=== PATIENT | male | born 1970 | race Caucasian/White ===

== ENCOUNTER 2019-07-25 16:59 | Inpatient (IN) | payer OTHER ==
[~2019-07-25] VITALS: Ht 165.1 cm; Wt 59.8 kg
[2019-07-25] MEDS ORDERED: ISON100L PO (17:44)
[2019-07-25] MEDS ORDERED: PYRI50CA PO (17:44)
[2019-07-25] MEDS ORDERED: RIFA300 PO (17:44)
[2019-07-25] MEDS ORDERED: LISI-658 PO (17:44)
[2019-07-25] MEDS ORDERED: 0.9% SODIUM CHLORIDE 10 ML SYRINGE IVP PRN ×2 (18:30→20:30)
[2019-07-25] MEDS ORDERED: ACETAMINOPHEN 325 MG TABLET PO PRN (18:30)
[2019-07-25] MEDS ORDERED: ONDANSETRON HCL 4 MG/2 ML VIAL IVP PRN ×2 (18:30→20:30)
[2019-07-25 18:44] LABS: BASOPHILS % (AUTO) 0.4 % (0.0-2.0); EOSINOPHILS % (AUTO) 1.3 % (1.0-6.0); HEMATOCRIT 41.5 % (41-53); HEMOGLOBIN 13.8 g/dL (13.5-17.5); LYMPHOCYTES # (AUTO) 1.4 K/uL (1.0-4.8); LYMPHOCYTES % (AUTO) 19.2 % (22.0-44.0); MEAN CORPUSCULAR HEMOGLOBIN 30.6 pg (26.0-34.0); MEAN CORPUSCULAR HGB CONC 33.2 G/dL (31.0-37.0); MEAN CORPUSCULAR VOLUME 92 fL (80-100); MONOCYTES # (AUTO) 0.6 K/uL (0.1-1.0); MONOCYTES % (AUTO) 7.9 % (2.0-9.0); NEUTROPHILS # (AUTO) 5.3 K/uL (1.8-7.7); NEUTROPHILS % (AUTO) 71.2 % (40.0-70.0); PLATELET COUNT (AUTO) 297 K/uL (150-450); RED CELL DISTRIBUTION WIDTH 15.8 % (11.5-14.5)
[2019-07-25 18:59] LABS: ANION GAP 10 mmol/L (8-16); CALCIUM, TOTAL 9.1 mg/dL (8.8-10.5); CARBON DIOXIDE 26 mmol/L (22-29); CHLORIDE 103 mmol/L (98-107); CREATININE 0.89 mg/dL (0.60-1.30); GLOMERULAR FILTR. RATE CALC > 60 mL/min (>60); GLUCOSE,RANDOM 98 mg/dL (70-110); POTASSIUM 4.4 mmol/L (3.5-5.1); SODIUM SERUM 139 mmol/L (136-145); UREA NITROGEN, BLOOD 18 mg/dL (7-18)
[2019-07-25 19:05] LABS: ALANINE AMINOTRANSFERASE 34 U/L (12-78); ALBUMIN 4.3 g/dL (3.4-5.0); ALKALINE PHOSPHATASE 78 U/L (46-116); ASPARTATE AMINOTRANSFERASE 29 U/L (15-37); BILIRUBIN,TOTAL 0.3 mg/dL (0.1-1.0); TOTAL PROTEIN, SERUM 7.6 g/dL (6.4-8.2)
[2019-07-25] MEDS ORDERED: POTASSIUM CHL 10 MEQ/WATER 50 ML IV PRN (20:30)
[2019-07-25] MEDS ORDERED: MAGNESIUM OXIDE 400 MG TABLET PO PRN (20:30)
[2019-07-25] MEDS ORDERED: POTASSIUM CHLORIDE 20 MEQ ER TABLET PO PRN (20:30)
[2019-07-25] MEDS ORDERED: MAGNESIUM SULFATE 4 GM/WATER 100 ML IV PRN (20:30)
[2019-07-25] MEDS ORDERED: MAGNESIUM SULFATE 2 GM/WATER 50 ML IV PRN (20:30)
[2019-07-25 22:05] VITALS: BP 116/71
[2019-07-25] MEDS: PANTOPRAZOLE SODIUM 40 MG DR TABLET PO SCH (22:12)
[2019-07-25] MEDS: HEPARIN SODIUM,PORCINE 5,000 UNITS/ML VIAL SQ SCH (22:20)
[2019-07-25] MEDS: ZOLPIDEM TARTRATE 5 MG TABLET PO PRN (23:53)
[2019-07-25] MEDS: ACETAMINOPHEN 325 MG TABLET PO PRN (23:53)
[2019-07-26 04:54] VITALS: BP 104/68
[2019-07-26 07:40] LABS: AMPHET/METH SCREEN,URINE NEGATIVE (NEGATIVE); BARBITURATE SCREEN, URINE NEGATIVE (NEGATIVE); BENZODIAZEPINES SCREEN,URINE NEGATIVE (NEGATIVE); CANNABINOID SCREEN,URINE NEGATIVE (NEGATIVE); COCAINE SCREEN,URINE NEGATIVE (NEGATIVE); METHADONE SCREEN, URINE NEGATIVE (NEGATIVE); OPIATE SCREEN,URINE NEGATIVE (NEGATIVE)
[2019-07-26 07:44] LABS: PHENCYCLIDINE SCREEN,URINE NEGATIVE (NEGATIVE)
[2019-07-26 08:01] LABS: BASOPHILS % (AUTO) 0.6 % (0.0-2.0); EOSINOPHILS % (AUTO) 2.2 % (1.0-6.0); HEMATOCRIT 40.3 % (41-53); HEMOGLOBIN 13.3 g/dL (13.5-17.5); LYMPHOCYTES # (AUTO) 1.4 K/uL (1.0-4.8); LYMPHOCYTES % (AUTO) 22.2 % (22.0-44.0); MEAN CORPUSCULAR HEMOGLOBIN 30.3 pg (26.0-34.0); MEAN CORPUSCULAR HGB CONC 33.1 G/dL (31.0-37.0); MEAN CORPUSCULAR VOLUME 92 fL (80-100); MONOCYTES # (AUTO) 0.4 K/uL (0.1-1.0); MONOCYTES % (AUTO) 6.8 % (2.0-9.0); NEUTROPHILS # (AUTO) 4.2 K/uL (1.8-7.7); NEUTROPHILS % (AUTO) 68.2 % (40.0-70.0); PLATELET COUNT (AUTO) 291 K/uL (150-450); RED CELL DISTRIBUTION WIDTH 15.3 % (11.5-14.5)
[2019-07-26 08:22] LABS: ANION GAP 3 mmol/L (8-16); CALCIUM, TOTAL 8.6 mg/dL (8.8-10.5); CARBON DIOXIDE 31 mmol/L (22-29); CHLORIDE 107 mmol/L (98-107); CREATININE 0.62 mg/dL (0.60-1.30); GLOMERULAR FILTR. RATE CALC > 60 mL/min (>60); GLUCOSE,RANDOM 93 mg/dL (70-110); POTASSIUM 4.3 mmol/L (3.5-5.1); SODIUM SERUM 141 mmol/L (136-145); UREA NITROGEN, BLOOD 17 mg/dL (7-18)
[2019-07-26 08:38] VITALS: BP 97/59
[2019-07-26] MEDS ORDERED: LISINOPRIL 20 MG TABLET PO SCH (09:00)
[2019-07-26] MEDS: ISONIAZID 300 MG TABLET PO SCH (09:32)
[2019-07-26] MEDS: HEPARIN SODIUM,PORCINE 5,000 UNITS/ML VIAL SQ SCH ×3 (09:32→23:24)
[2019-07-26] MEDS: PANTOPRAZOLE SODIUM 40 MG DR TABLET PO SCH (09:33)
[2019-07-26] MEDS: RIFAMPIN 300 MG CAPSULE PO SCH (09:33)
[2019-07-26] MEDS: HYDROCHLOROTHIAZIDE 25 MG TABLET PO SCH (09:33)
[2019-07-26] MEDS: PYRIDOXINE HCL 50 MG TABLET PO SCH (09:33)
[2019-07-26] MEDS: LISINOPRIL 20 MG TABLET PO SCH (11:51)
[2019-07-26] MEDS: ACETAMINOPHEN 325 MG TABLET PO PRN ×2 (11:52→16:03)
[2019-07-26 15:27] VITALS: BP 99/57
[2019-07-26] MEDS: ZOLPIDEM TARTRATE 5 MG TABLET PO PRN (23:24)
[2019-07-27 00:07] VITALS: BP 130/80
[2019-07-27 04:00] VITALS: BP 99/64
[2019-07-27] MEDS: HEPARIN SODIUM,PORCINE 5,000 UNITS/ML VIAL SQ SCH ×2 (08:00→16:00)
[2019-07-27] MEDS: HYDROCHLOROTHIAZIDE 25 MG TABLET PO SCH (08:22)
[2019-07-27] MEDS: PYRIDOXINE HCL 50 MG TABLET PO SCH (08:22)
[2019-07-27] MEDS: PANTOPRAZOLE SODIUM 40 MG DR TABLET PO SCH (08:22)
[2019-07-27] MEDS: RIFAMPIN 300 MG CAPSULE PO SCH (08:22)
[2019-07-27] MEDS: ISONIAZID 300 MG TABLET PO SCH (08:22)
[2019-07-27] MEDS: LISINOPRIL 20 MG TABLET PO SCH (08:22)
[2019-07-27 08:23] VITALS: BP 115/75
[2019-07-27] MEDS ORDERED: ISOMETHEPTENE PO PRN (15:15)
[2019-07-27] MEDS ORDERED: ACETAMINOPHEN PO PRN (15:15)
[2019-07-27] MEDS ORDERED: [UNRECOGNIZED DRUG - OTHER] PO PRN (15:15)
[2019-07-27 15:50] VITALS: BP 142/73
[2019-07-27 19:50] VITALS: BP 126/67
[2019-07-28] VITALS: BP 117/73
[2019-07-28] MEDS: HEPARIN SODIUM,PORCINE 5,000 UNITS/ML VIAL SQ SCH ×3 (08:00→16:00)
[2019-07-28 08:18] VITALS: BP 121/67
[2019-07-28] MEDS: PANTOPRAZOLE SODIUM 40 MG DR TABLET PO SCH (08:30)
[2019-07-28] MEDS: PYRIDOXINE HCL 50 MG TABLET PO SCH (08:30)
[2019-07-28] MEDS: LISINOPRIL 20 MG TABLET PO SCH (08:30)
[2019-07-28] MEDS: ISONIAZID 300 MG TABLET PO SCH (08:30)
[2019-07-28] MEDS: RIFAMPIN 300 MG CAPSULE PO SCH (08:30)
[2019-07-28] MEDS: HYDROCHLOROTHIAZIDE 25 MG TABLET PO SCH (08:30)
[2019-07-28 15:40] VITALS: BP 121/67
[2019-07-28 20:58] VITALS: BP 133/88
[2019-07-28] MEDS: ZOLPIDEM TARTRATE 5 MG TABLET PO PRN (20:58)
[2019-07-29] VITALS: BP 128/70
[2019-07-29] MEDS: HEPARIN SODIUM,PORCINE 5,000 UNITS/ML VIAL SQ SCH ×4 (08:10→23:56)
[2019-07-29] MEDS: PANTOPRAZOLE SODIUM 40 MG DR TABLET PO SCH (08:10)
[2019-07-29] MEDS: RIFAMPIN 300 MG CAPSULE PO SCH (08:11)
[2019-07-29] MEDS: LISINOPRIL 20 MG TABLET PO SCH (08:11)
[2019-07-29] MEDS: ISONIAZID 300 MG TABLET PO SCH (08:11)
[2019-07-29] MEDS: HYDROCHLOROTHIAZIDE 25 MG TABLET PO SCH (08:11)
[2019-07-29] MEDS: PYRIDOXINE HCL 50 MG TABLET PO SCH (08:13)
[2019-07-29 08:17] LABS: BASOPHILS % (AUTO) 0.7 % (0.0-2.0); EOSINOPHILS % (AUTO) 1.8 % (1.0-6.0); HEMATOCRIT 40.7 % (41-53); HEMOGLOBIN 13.9 g/dL (13.5-17.5); LYMPHOCYTES # (AUTO) 1.6 K/uL (1.0-4.8); LYMPHOCYTES % (AUTO) 25.5 % (22.0-44.0); MEAN CORPUSCULAR HGB CONC 34.1 G/dL (31.0-37.0); MEAN CORPUSCULAR VOLUME 91 fL (80-100); MONOCYTES # (AUTO) 0.5 K/uL (0.1-1.0); MONOCYTES % (AUTO) 7.5 % (2.0-9.0); NEUTROPHILS % (AUTO) 64.5 % (40.0-70.0); PLATELET COUNT (AUTO) 287 K/uL (150-450); RED BLOOD CELL COUNT(AUTO) 4.48 MIL/uL (4.50-5.90); RED CELL DISTRIBUTION WIDTH 15.4 % (11.5-14.5)
[2019-07-29] MEDS ORDERED: ISON300 PO (15:05)
[2019-07-29] MEDS: ASPIRIN/ACETAMINOPHEN/CAFFEINE 250-250-65 MG TABLET PO PRN (15:33)
[2019-07-29 16:06] VITALS: BP 137/81
[2019-07-29 20:31] VITALS: BP 104/56
[2019-07-29] MEDS: ZOLPIDEM TARTRATE 5 MG TABLET PO PRN (20:58)
[2019-07-30 04:00] VITALS: BP 102/75
[2019-07-30 06:58] LABS: BASOPHILS % (AUTO) 0.6 % (0.0-2.0); EOSINOPHILS % (AUTO) 2.5 % (1.0-6.0); HEMATOCRIT 39.7 % (41-53); HEMOGLOBIN 13.5 g/dL (13.5-17.5); LYMPHOCYTES # (AUTO) 1.4 K/uL (1.0-4.8); LYMPHOCYTES % (AUTO) 27.1 % (22.0-44.0); MEAN CORPUSCULAR HEMOGLOBIN 30.8 pg (26.0-34.0); MEAN CORPUSCULAR VOLUME 91 fL (80-100); MONOCYTES # (AUTO) 0.5 K/uL (0.1-1.0); MONOCYTES % (AUTO) 8.8 % (2.0-9.0); NEUTROPHILS # (AUTO) 3.1 K/uL (1.8-7.7); PLATELET COUNT (AUTO) 284 K/uL (150-450); RED BLOOD CELL COUNT(AUTO) 4.37 MIL/uL (4.50-5.90); RED CELL DISTRIBUTION WIDTH 15.3 % (11.5-14.5)
[2019-07-30 07:42] VITALS: BP 107/74
[2019-07-30] MEDS: HEPARIN SODIUM,PORCINE 5,000 UNITS/ML VIAL SQ SCH ×4 (08:00→23:44)
[2019-07-30] MEDS: ISONIAZID 300 MG TABLET PO SCH (08:28)
[2019-07-30] MEDS: PYRIDOXINE HCL 50 MG TABLET PO SCH (08:28)
[2019-07-30] MEDS: PANTOPRAZOLE SODIUM 40 MG DR TABLET PO SCH (08:28)
[2019-07-30] MEDS: RIFAMPIN 300 MG CAPSULE PO SCH (08:28)
[2019-07-30] MEDS: LISINOPRIL 20 MG TABLET PO SCH (08:29)
[2019-07-30] MEDS: HYDROCHLOROTHIAZIDE 25 MG TABLET PO SCH (08:29)
[2019-07-30] MEDS: ASPIRIN/ACETAMINOPHEN/CAFFEINE 250-250-65 MG TABLET PO PRN ×2 (09:04→16:23)
[2019-07-30 15:33] VITALS: BP 127/58
[2019-07-30] MEDS: RisperiDONE 1 MG TABLET PO SCH (20:48)
[2019-07-30] MEDS: ZOLPIDEM TARTRATE 5 MG TABLET PO PRN (20:49)
[2019-07-30] MEDS: ACETAMINOPHEN 325 MG TABLET PO PRN (20:49)
[2019-07-30 21:27] VITALS: BP 135/82
[2019-07-31] MEDS: ASPIRIN/ACETAMINOPHEN/CAFFEINE 250-250-65 MG TABLET PO PRN ×3 (05:24→20:46)
[2019-07-31 06:22] VITALS: BP 99/57
[2019-07-31] MEDS: HEPARIN SODIUM,PORCINE 5,000 UNITS/ML VIAL SQ SCH ×3 (08:00→23:46)
[2019-07-31 08:27] VITALS: BP 153/68
[2019-07-31] MEDS: PYRIDOXINE HCL 50 MG TABLET PO SCH (08:29)
[2019-07-31] MEDS: ISONIAZID 300 MG TABLET PO SCH (08:29)
[2019-07-31] MEDS: HYDROCHLOROTHIAZIDE 25 MG TABLET PO SCH (08:30)
[2019-07-31] MEDS: RisperiDONE 1 MG TABLET PO SCH ×2 (08:30→20:31)
[2019-07-31] MEDS: RIFAMPIN 300 MG CAPSULE PO SCH (08:30)
[2019-07-31] MEDS: LISINOPRIL 20 MG TABLET PO SCH (08:31)
[2019-07-31] MEDS: PANTOPRAZOLE SODIUM 40 MG DR TABLET PO SCH (08:31)
[2019-07-31 15:39] VITALS: BP 108/68
[2019-07-31 20:06] VITALS: BP 122/60
[2019-07-31] MEDS: ACETAMINOPHEN 325 MG TABLET PO PRN (23:47)
[2019-08-01 04:21] VITALS: BP 135/87
[2019-08-01 07:56] LABS: BASOPHILS % (AUTO) 0.3 % (0.0-2.0); EOSINOPHILS % (AUTO) 0.2 % (1.0-6.0); HEMATOCRIT 42.3 % (41-53); LYMPHOCYTES # (AUTO) 0.9 K/uL (1.0-4.8); LYMPHOCYTES % (AUTO) 7.9 % (22.0-44.0); MEAN CORPUSCULAR HEMOGLOBIN 30.4 pg (26.0-34.0); MEAN CORPUSCULAR HGB CONC 33.2 G/dL (31.0-37.0); MEAN CORPUSCULAR VOLUME 92 fL (80-100); MONOCYTES # (AUTO) 0.5 K/uL (0.1-1.0); NEUTROPHILS # (AUTO) 10.1 K/uL (1.8-7.7); PLATELET COUNT (AUTO) 329 K/uL (150-450); RED BLOOD CELL COUNT(AUTO) 4.62 MIL/uL (4.50-5.90); RED CELL DISTRIBUTION WIDTH 15.4 % (11.5-14.5)
[2019-08-01 07:59] LABS: ALBUMIN 4.1 g/dL (3.4-5.0); ANION GAP 5 mmol/L (8-16); CALCIUM, TOTAL 9.1 mg/dL (8.8-10.5); CARBON DIOXIDE 31 mmol/L (22-29); CHLORIDE 101 mmol/L (98-107); CREATININE 0.66 mg/dL (0.60-1.30); GLOMERULAR FILTR. RATE CALC > 60 mL/min (>60); GLUCOSE,RANDOM 123 mg/dL (70-110); POTASSIUM 4.1 mmol/L (3.5-5.1); SODIUM SERUM 137 mmol/L (136-145); UREA NITROGEN, BLOOD 19 mg/dL (7-18)
[2019-08-01 08:20] LABS: NEUTROPHILS % (AUTO) 87.6 % (40.0-70.0)
[2019-08-01 08:21] VITALS: BP 158/89
[2019-08-01] MEDS: PYRIDOXINE HCL 50 MG TABLET PO SCH (08:23)
[2019-08-01] MEDS: HYDROCHLOROTHIAZIDE 25 MG TABLET PO SCH (08:23)
[2019-08-01] MEDS: RIFAMPIN 300 MG CAPSULE PO SCH (08:23)
[2019-08-01] MEDS: ISONIAZID 300 MG TABLET PO SCH (08:23)
[2019-08-01] MEDS: ASPIRIN/ACETAMINOPHEN/CAFFEINE 250-250-65 MG TABLET PO PRN (08:24)
[2019-08-01] MEDS: LISINOPRIL 20 MG TABLET PO SCH (08:24)
[2019-08-01] MEDS: RisperiDONE 1 MG TABLET PO SCH (08:24)
[2019-08-01] MEDS: HEPARIN SODIUM,PORCINE 5,000 UNITS/ML VIAL SQ SCH ×2 (08:24→16:00)
[2019-08-01] MEDS: PANTOPRAZOLE SODIUM 40 MG DR TABLET PO SCH (08:25)
[2019-08-01] MEDS ORDERED: MAG HYDROX/AL HYDROX/SIMETH 30 ML SUSP UDCUP PO ONE (09:00)
[2019-08-01] MEDS ORDERED: RISP0.5T20 PO (13:53)
[2019-08-01] MEDS ORDERED: ASPI-1192 PO (13:54)
[2019-08-01 15:39] VITALS: BP 115/56
[2019-08-02] MEDS ORDERED: PYRIDOXINE HCL 50 MG TABLET PO SCH (09:00)
== END 2019-08-01 18:00 | DRG 880 ==
LOC: EMS 17:02 → 6N 20:32
PROVIDERS: ADMIT Internal Medicine; ATTEND Internal Medicine
DX: R45.851 Suicidal ideations (principal); I10 Essential (primary) hypertension; Z20.828 Contact with and (suspected) exposure to other viral communicable diseases; G43.909 Migraine, unspecified, not intractable, without status migrainosus
CPT/HCPCS: 83735; 84153; G0480; J1644; J2405